=== PATIENT | male | born 1980 | race Caucasian/White ===

== ENCOUNTER 2017-08-05 03:18 | Emergency (ER) | payer OTHER ==
[2017-08-05] MEDS ORDERED: LORAZEPAM 2 MG/ML 1 ML VIAL ONE ×2 (03:30→10:07)
[2017-08-05 03:41] VITALS: O2SAT 96
[2017-08-05 03:50] VITALS: TEMP 36.7
[2017-08-05 04:07] LABS: BLOOD UREA NITROGEN 20 mg/dl (7-18); BUN/CREATININE RATIO 19.9 (10-20); CALCIUM 8.3 mg/dl (8.5-10.1); CARBON DIOXIDE 27 mmol/L (21-32); CHLORIDE 105 mmol/L (98-107); CREATININE 1.02 mg/dl (0.60-1.40); GLUCOSE 88 mg/dl (70-99); POTASSIUM 3.7 mmol/L (3.5-5.1); SODIUM 137 mmol/L (136-145)
[2017-08-05] MEDS ORDERED: LORAZEPAM 2 MG/ML 1 ML VIAL IM STA ×2 (04:49→10:06)
[2017-08-05] MEDS ORDERED: HALOPERIDOL LACTATE 5 MG/ML 1 ML VIAL IM STA (10:07)
--- NOTE | 2017-08-05 10:37 | EMERGENCY ROOM VISIT NOTE ---
ED Visit Note First contact with patient: 07:10 I received sign out from ZANA Trinh at 0710. Pt presented with alcohol intoxication. Patient's blood alcohol level was 336. He reportedly received IM Ativan due to aggressive behavior and making threats toward staff. He should be sober after 11 AM. 0945 - Nursing staff called stating the patient is becoming aggressive, demanding to leave. Security at bedside. I evaluated the patient, he is still visibly intoxicated, slurring his words, with belligerent behavior, uncooperative and threatening to leave. Dr. Liang also aware and at the bedside. Due to this behavior, the patient was medicated with IM Ativan and Haldol for his safety and the safety of staff. Will continue to monitor. Full physical exam performed as below. Physical Exam: CONSTITUTIONAL: Alert, combative, oriented to person only, arguing with staff and security officers. HEENT: Normocephalic, atraumatic. Pupils equal, round and reactive to light, EOMI. TMs normal. Pharynx normal. NECK: Supple, full active range of motion without discomfort. RESPIRATORY: Clear to auscultation bilaterally with no wheezing, crackles, rhonchi or stridor. Equal expansion bilaterally. CARDIOVASCULAR: Tachycardic. Regular rhythm with no murmurs, rubs or gallops. Normal peripheral perfusion. No edema. GASTROINTESTINAL: Soft, nontender, nondistended. Bowel sounds present in all quadrants. MUSCULOSKELETAL: Full range of motion of all joints without discomfort. INTEGUMENTARY: No rash or other significant dermatologic conditions noted. NEUROLOGIC: No focal neurologic deficits noted. 1379 - Patient was reassessed multiple times during his time in the ED, and was on continuous cardiac monitoring. At this time he is more alert, fully oriented , and appropriate. He states he does not have any complaints. After a very lengthy stay in the emergency department, the patient was deemed stable for discharge home. He is going home by taxi/[employer]. The patient was discharged home in stable condition and ambulatory.
[2017-08-05 15:48] VITALS: BP 106/70; PULSE 108; O2SAT 96
--- NOTE | 2017-08-05 21:32 | EMERGENCY ROOM VISIT NOTE ---
History First contact with patient: 03:22 Chief Complaint: ALCOHOL OVERDOSE Stated Complaint: ALCOHOL Nursing Triage Summary: Patient cursing and swearing, using "Fuck" word often. Security and staff bedside. Patient unable to be calmed and redirected for very long. Patient intermittently swinging at staff. History of Present Illness The patient is a 36 year old male who presents to the Emergency Room with complaints of alcohol intoxication he was found passed out in someone's yard by the police and EMS was summoned. Patient was combative yelling and screaming. Patient was unwilling to cooperate. He was using profanity at staff and was threatening. Patient refused to answer any questions. Whenever the patient was asked a question he would respond "Fuck off" or something will happen to you. Review of Systems Unable to obtain secondary to patient's combative behavior and alcohol intoxication Past Medical/Surgical History Unable to obtain secondary to patient's combative behavior and alcohol intoxication Social History Smoking Status: Current Every Day Smoker Alcohol Use: heavy Current/Historical Medications No Active Prescriptions or Reported Meds Physical Exam Vital Signs Date Time Temp Pulse Resp B/P (MAP) Pulse Ox O2 Delivery O2 Flow Rate FiO2 08/05/17 15:48 108 16 106/70 96 Room Air 08/05/17 13:20 84 08/05/17 12:53 89 16 122/71 93 Room Air 08/05/17 12:30 84 18 92 Room Air 08/05/17 11:15 81 16 94 Room Air 08/05/17 10:54 84 08/05/17 10:43 96 18 101/58 92 Room Air 08/05/17 08:57 90 18 102/63 97 Room Air 08/05/17 08:14 86 16 120/68 97 Room Air 08/05/17 07:21 93 08/05/17 06:13 82 16 112/66 95 Room Air 08/05/17 04:43 78 14 92 08/05/17 04:08 76 15 93 08/05/17 03:50 36.7 08/05/17 03:43 90 08/05/17 03:41 94 Room Air 08/05/17 03:41 96 Room Air 08/05/17 03:26 95 18 142/89 99 Room Air 08/05/17 03:24 142/89 Physical Exam PHYSICAL EXAM: VITALS: Vitals are noted on the nurse's note and reviewed by myself. Vital signs stable. GENERAL: White male yelling and screaming at staff and the police with EtOH odor , nondiaphoretic, well-developed well-nourished. The patient is visibly intoxicated. SKIN: The skin was without obvious lacerations, abrasions, or rashes. There is no tenting of the skin. Capillary reflex less than 2 seconds. HEENT: Normocephalic, atraumatic. PERRLA. EOMI. Conjunctiva with mild injection without icterus. Tympanic membranes without erythema or effusion bilaterally no hemotympanum. External auditory canals are clear. Nares patent bilaterally. No epistaxis. Oropharynx without erythema or exudate. Uvula midline. Oral mucosal moist. No lymphadenopathy. Neck is supple without cervical spine tenderness. HEART: Regular rate and rhythm without murmurs gallops or rubs. Peripheral pulses 2+. LUNGS: Clear to auscultation bilaterally without wheezes, rales or rhonchi. ABDOMEN: Positive bowel sounds x 4. Normal tympanic percussion. Soft, nontender, without masses or organomegaly. MUSCULOSKELETAL: Gross motor function of the upper and lower extremities intact. The patient has a staggering gait. NEUROLOGIC: The patient is visibly intoxicated. Once they were more sober they were alert and oriented to person place and time. Medical Decision & Procedures Laboratory Results 08/05/17 03:40 Test 08/05/17 03:40 Anion Gap 5.0 mmol/L (3-11) Estimated GFR () 108.3 Estimated GFR (Non- 93.5 BUN/Creatinine Ratio 19.9 (10-20) Calcium Level 8.3 mg/dl (8.5-10.1) Ethyl Alcohol mg/dL 336.0 mg/dl (0-3) Medications Administered Medications (Trade) Dose Ordered Sig/Yakelin Route Start Time Stop Time Status Last Admin Dose Admin Lorazepam (Ativan Inj) 2 mg STK-MED ONCE .ROUTE 08/05/17 03:30 08/05/17 03:31 DC 08/05/17 03:42 2 MG Lorazepam (Ativan Inj) 2 mg NOW STAT IM 08/05/17 10:06 08/05/17 10:07 DC 08/05/17 10:17 2 MG Haloperidol Lactate (Haldol Inj) 5 mg NOW STAT IM 08/05/17 10:07 08/05/17 10:08 DC 08/05/17 10:17 5 MG ED Course Prior records/ancillary studies reviewed. Triage Nursing notes reviewed. Additional history obtained from EMS and police. The patient's history was concerning for altered mental status with combative behavior and a possible alcohol overdose. Differential diagnosis: Etiologies such as alcohol intoxication, toxicologic, infection, hypoglycemia, electrolyte abnormalities, cardiac sources, intracerebral event, neurologic, as well as others were entertained. Physical examination: As above. The patient is clinically intoxicated. no trauma noted. ER treatment provided: Monitoring, Ativan IM Aspiration precautions The patient was frequently reassessed. Diagnostic interpretation by me: Cardiac monitoring did not reveal any evidence of dysrhythmia. The labs revealed no worrisome electrolyte abnormality. The patient's blood alcohol level was 336 mg/dL. Patient was highly combative. He was threatening staff and unwilling to cooperate. For his safety and the staff safety he was medically sedated with Ativan. He was reassessed multiple times and remained stable. He was highly intoxicated. Patient was signed out to the Lianna Adams NP, pending patient sobering up and reevaluation in stable condition This appears to be consistent with combative behavior and overdose of alcohol. By the evaluation outlined above emergent etiologies such as trauma, infection, hypoglycemia, electrolyte abnormalities, cardiac sources, intracerebral event, neurologic,as well as others were deemed relatively unlikely. Medical Decision As above Medication Reconcilliation Current Medication List: was personally reviewed by me Blood Pressure Screening Patient's blood pressure: Normal blood pressure Impression Primary Impression: Alcoholic intoxication Additional Impression: Combative behavior Critical Care I have personally spent greater than 30 minutes of critical care time in the direct management of this patient. This includes bedside care, interpretation of diagnostic studies, and testing, discussion with consultants, patient, and family members, and other required patient management activities. This 30 minutes is in excess of all separately billable procedures. Departure Information Prescriptions No Active Prescriptions or Reported Meds Referrals No Doctor, Assigned (PCP) Patient Instructions My [facility] Problem Qualifiers Primary Impression: Alcoholic intoxication Complication of substance-induced condition: uncomplicated Qualified Codes: F10.920 - Alcohol use, unspecified with intoxication, uncomplicated
== END 2017-08-05 16:18 | disposition home or self-care (01) ==
LOC: EDBD 03:18 → C.EDA 03:20
DX: F10.920 Alcohol use, unspecified with intoxication, uncomplicated (principal); F17.200 Nicotine dependence, unspecified, uncomplicated; R46.89 Other symptoms and signs involving appearance and behavior